=== PATIENT | female | born 1980 | race African-American/Black ===

== ENCOUNTER 2022-10-04 15:48 | Emergency (ER) | payer MEDICARE, MEDICAID ==
[2022-10-04] MEDS ORDERED: Lidocaine 1% 10 ML MDV ONE (16:29)
[2022-10-04] MEDS ORDERED: Succinylcholine 200 MG/10 ML MDV ONE ×2 (16:36→16:37)
[2022-10-04] MEDS ORDERED: Etomidate 2 MG/ML 10 ML SDV ONE (16:36)
[2022-10-04] MEDS ORDERED: Rocuronium 50 MG/5 ML Vial ONE ×2 (16:38→17:12)
[2022-10-04] MEDS ORDERED: fentaNYL 100 MCG/2 ML SDV ONE (16:38)
[2022-10-04] MEDS ORDERED: Midazolam 1 MG/ML 2 ML SDV ONE (17:08)
[2022-10-04] MEDS ORDERED: cefTRIAXone 1 GM Vial ONE (17:17)
[2022-10-04] MEDS ORDERED: Vancomycin 1 GM SDV ONE (17:17)
[2022-10-04 17:23] LABS: CHLORIDE,CL 107 mmol/L (98-107); SODIUM,NA 145 mmol/L (136-145)
[2022-10-04 17:24] LABS: ANION GAP 10.3 mmol/L (5-15); ESTIMATED GFR 94 mL/min (>=60)
[2022-10-04] MEDS ORDERED: cefTRIAXone 1 GM Vial IVPUSH ONE (18:14)
[2022-10-04] MEDS ORDERED: Succinylcholine 200 MG/10 ML MDV IV STA (18:16)
[2022-10-04] MEDS ORDERED: Midazolam 1 MG/ML 2 ML SDV IVPUSH ONE (18:18)
[2022-10-04] MEDS ORDERED: Rocuronium 50 MG/5 ML Vial IV ONE (18:19)
[2022-10-04] MEDS ORDERED: Etomidate 2 MG/ML 10 ML SDV IVPUSH ONE (18:20)
[2022-10-04] MEDS ORDERED: fentaNYL 50 MCG/ML SDV IVPUSH ONE (18:21)
[2022-10-04] MEDS ORDERED: DOPamine/Dextrose 5%-Water 400 MG/250 ML BAG IV SCH (20:00)
== END 2022-10-04 17:50 | disposition short-term general hospital (02) ==
LOC: VM.ED 15:48
DX: J69.0 Pneumonitis due to inhalation of food and vomit (principal); R06.03 Acute respiratory distress
CPT/HCPCS: 71045; 80053; 83605; 85025; 99285; J0330

== ENCOUNTER 2023-01-09 14:44 | Inpatient (IN) | payer MEDICARE, MEDICAID ==
[2023-01-09] MEDS ORDERED: Piperacillin/Tazobactam 4.5 GM in Sodium Chloride 0.9% 100 ML IV ONE (15:32)
[2023-01-09] MEDS ORDERED: Sodium Chloride 0.9% 500 ML IV ONE ×2 (16:08→20:00)
[2023-01-09] MEDS: Sodium Chloride 0.9% 1,000 ML IV SCH ×2 (16:59→22:36)
[2023-01-09] MEDS: Metoprolol Tartrate 25 MG Tab GTUBE SCH (21:00)
[2023-01-09] MEDS: Mirtazapine 15 MG Tab GTUBE SCH (21:50)
[2023-01-09] MEDS: Diazepam 5 MG Tab GTUBE SCH (21:52)
[2023-01-09] MEDS: Baclofen 10 MG Tab GTUBE SCH (21:53)
[2023-01-09] MEDS: Docusate Sodium Liquid 100 MG/10 ML UD Cup GTUBE SCH (21:53)
[2023-01-09] MEDS: Piperacillin/Tazobactam 4.5 GM in Sodium Chloride 0.9% 100 ML IV SCH (22:37)
[2023-01-10] MEDS: Sodium Chloride 0.9% 1,000 ML IV SCH ×2 (04:05→14:22)
[2023-01-10] MEDS: Piperacillin/Tazobactam 4.5 GM in Sodium Chloride 0.9% 100 ML IV SCH ×4 (05:21→22:01)
[2023-01-10] MEDS: Acetaminophen 500 MG Tab GTUBE PRN (05:59)
[2023-01-10] MEDS: Diazepam 5 MG Tab GTUBE SCH ×2 (08:58→20:16)
[2023-01-10] MEDS: Sertraline 100 MG Tab GTUBE SCH (09:02)
[2023-01-10] MEDS: LEVONORGESTREL GTUBE SCH (09:04)
[2023-01-10] MEDS: ETHINYL ESTRADIOL GTUBE SCH (09:04)
[2023-01-10] MEDS: [UNRECOGNIZED DRUG - OTHER] GTUBE SCH (09:04)
[2023-01-10] MEDS: Baclofen 10 MG Tab GTUBE SCH ×3 (09:05→20:17)
[2023-01-10] MEDS: Non-Formulary Medication 1 Each (Aluminum Chloride [Drysol] 60 ML Solution) TOP SCH ×2 (09:05→20:17)
[2023-01-10] MEDS: Magnesium Hydroxide 400 MG/5 ML Susp 30 ML Cup GTUBE SCH (09:07)
[2023-01-10] MEDS: Polyethylene Glycol 3350 Powder 17 GM Packet GTUBE SCH (09:07)
[2023-01-10] MEDS: Metoprolol Tartrate 25 MG Tab GTUBE SCH ×2 (09:09→20:15)
[2023-01-10] MEDS: Docusate Sodium Liquid 100 MG/10 ML UD Cup GTUBE SCH ×2 (09:13→20:16)
[2023-01-10 09:19] LABS: ANION GAP 10.8 mmol/L (5-15)
[2023-01-10] MEDS: Enoxaparin 30 MG/0.3 ML Syringe SUBCUT SCH (13:11)
[2023-01-10] MEDS: [UNRECOGNIZED DRUG - OTHER] GTUBE SCH (16:34)
[2023-01-10] MEDS: Mirtazapine 15 MG Tab GTUBE SCH (20:14)
[2023-01-11] MEDS: Piperacillin/Tazobactam 4.5 GM in Sodium Chloride 0.9% 100 ML IV SCH ×3 (05:31→16:36)
[2023-01-11] MEDS: LEVONORGESTREL GTUBE SCH (08:27)
[2023-01-11] MEDS: Baclofen 10 MG Tab GTUBE SCH ×3 (08:27→20:09)
[2023-01-11] MEDS: Diazepam 5 MG Tab GTUBE SCH ×2 (08:27→20:10)
[2023-01-11] MEDS: Acetaminophen 500 MG Tab GTUBE PRN (08:27)
[2023-01-11] MEDS: [UNRECOGNIZED DRUG - OTHER] GTUBE SCH (08:27)
[2023-01-11] MEDS: Sertraline 100 MG Tab GTUBE SCH (08:27)
[2023-01-11] MEDS: ETHINYL ESTRADIOL GTUBE SCH (08:27)
[2023-01-11] MEDS: Polyethylene Glycol 3350 Powder 17 GM Packet GTUBE SCH (08:28)
[2023-01-11] MEDS: Docusate Sodium Liquid 100 MG/10 ML UD Cup GTUBE SCH ×2 (08:28→20:14)
[2023-01-11] MEDS: Magnesium Hydroxide 400 MG/5 ML Susp 30 ML Cup GTUBE SCH (08:28)
[2023-01-11] MEDS: Metoprolol Tartrate 25 MG Tab GTUBE SCH ×2 (08:29→20:12)
[2023-01-11] MEDS: Non-Formulary Medication 1 Each (Aluminum Chloride [Drysol] 60 ML Solution) TOP SCH ×2 (08:36→20:13)
[2023-01-11 08:52] LABS: ANION GAP 11.3 mmol/L (5-15)
[2023-01-11] MEDS: Sodium Chloride 0.9% 1,000 ML IV SCH ×2 (10:12→11:18)
[2023-01-11] MEDS: Enoxaparin 30 MG/0.3 ML Syringe SUBCUT SCH (12:58)
[2023-01-11] MEDS: [UNRECOGNIZED DRUG - OTHER] GTUBE SCH (16:40)
[2023-01-11] MEDS: Mirtazapine 15 MG Tab GTUBE SCH (20:09)
[2023-01-12] MEDS: Piperacillin/Tazobactam 4.5 GM in Sodium Chloride 0.9% 100 ML IV SCH ×3 (00:16→10:58)
[2023-01-12] MEDS: Non-Formulary Medication 1 Each (Aluminum Chloride [Drysol] 60 ML Solution) TOP SCH ×2 (08:19→20:53)
[2023-01-12] MEDS: Metoprolol Tartrate 25 MG Tab GTUBE SCH ×2 (08:20→20:49)
[2023-01-12] MEDS: Diazepam 5 MG Tab GTUBE SCH ×2 (08:20→20:50)
[2023-01-12] MEDS: Sertraline 100 MG Tab GTUBE SCH (08:21)
[2023-01-12] MEDS: Baclofen 10 MG Tab GTUBE SCH ×3 (08:21→20:50)
[2023-01-12] MEDS: [UNRECOGNIZED DRUG - OTHER] GTUBE SCH (08:22)
[2023-01-12] MEDS: ETHINYL ESTRADIOL GTUBE SCH (08:22)
[2023-01-12] MEDS: LEVONORGESTREL GTUBE SCH (08:22)
[2023-01-12] MEDS: Magnesium Hydroxide 400 MG/5 ML Susp 30 ML Cup GTUBE SCH (10:32)
[2023-01-12] MEDS: Polyethylene Glycol 3350 Powder 17 GM Packet GTUBE SCH (10:32)
[2023-01-12] MEDS: Docusate Sodium Liquid 100 MG/10 ML UD Cup GTUBE SCH ×2 (10:32→20:51)
[2023-01-12] MEDS: Enoxaparin 30 MG/0.3 ML Syringe SUBCUT SCH (11:02)
[2023-01-12] MEDS: [UNRECOGNIZED DRUG - OTHER] GTUBE SCH (16:07)
[2023-01-12] MEDS: Amoxicillin/Clavulanate K 600-42.9 MG/5 ML Susp 125 ML Bottle GTUBE SCH (20:52)
[2023-01-12] MEDS: Mirtazapine 15 MG Tab GTUBE SCH (20:55)
[2023-01-12] MEDS: Sodium Chloride 0.9% 1,000 ML IV SCH (22:18)
[2023-01-13 07:08] LABS: ANION GAP 7.6 mmol/L (5-15)
[2023-01-13] MEDS: LEVONORGESTREL GTUBE SCH (08:33)
[2023-01-13] MEDS: ETHINYL ESTRADIOL GTUBE SCH (08:33)
[2023-01-13] MEDS: [UNRECOGNIZED DRUG - OTHER] GTUBE SCH (08:33)
[2023-01-13] MEDS: Metoprolol Tartrate 25 MG Tab GTUBE SCH ×2 (08:34→20:44)
[2023-01-13] MEDS: Diazepam 5 MG Tab GTUBE SCH ×2 (08:34→20:42)
[2023-01-13] MEDS: Sertraline 100 MG Tab GTUBE SCH (08:35)
[2023-01-13] MEDS: Amoxicillin/Clavulanate K 600-42.9 MG/5 ML Susp 125 ML Bottle GTUBE SCH ×3 (08:35→20:43)
[2023-01-13] MEDS: Baclofen 10 MG Tab GTUBE SCH ×3 (08:35→20:42)
[2023-01-13] MEDS: Non-Formulary Medication 1 Each (Aluminum Chloride [Drysol] 60 ML Solution) TOP SCH ×3 (08:36→20:44)
[2023-01-13] MEDS: Docusate Sodium Liquid 100 MG/10 ML UD Cup GTUBE SCH (08:36)
[2023-01-13] MEDS: Enoxaparin 30 MG/0.3 ML Syringe SUBCUT SCH (12:06)
[2023-01-13] MEDS ORDERED: Furosemide 20 MG/2 ML VIAL IV ONE (13:50)
[2023-01-13] MEDS: Acetaminophen 500 MG Tab GTUBE PRN (17:39)
[2023-01-13] MEDS: [UNRECOGNIZED DRUG - OTHER] GTUBE SCH (17:48)
[2023-01-13] MEDS: Mirtazapine 15 MG Tab GTUBE SCH (20:41)
[2023-01-14 07:14] LABS: ANION GAP 9.5 mmol/L (5-15)
[2023-01-14] MEDS: Non-Formulary Medication 1 Each (Aluminum Chloride [Drysol] 60 ML Solution) TOP SCH ×2 (09:00→20:55)
[2023-01-14] MEDS: [UNRECOGNIZED DRUG - OTHER] GTUBE SCH (09:37)
[2023-01-14] MEDS: ETHINYL ESTRADIOL GTUBE SCH (09:37)
[2023-01-14] MEDS: Baclofen 10 MG Tab GTUBE SCH ×3 (09:37→20:45)
[2023-01-14] MEDS: LEVONORGESTREL GTUBE SCH (09:37)
[2023-01-14] MEDS: Diazepam 5 MG Tab GTUBE SCH ×2 (09:37→20:45)
[2023-01-14] MEDS: Sertraline 100 MG Tab GTUBE SCH (09:38)
[2023-01-14] MEDS: Metoprolol Tartrate 25 MG Tab GTUBE SCH ×2 (09:44→20:45)
[2023-01-14] MEDS: Amoxicillin/Clavulanate K 600-42.9 MG/5 ML Susp 125 ML Bottle GTUBE SCH ×3 (09:45→20:50)
[2023-01-14] MEDS: Enoxaparin 30 MG/0.3 ML Syringe SUBCUT SCH (12:48)
[2023-01-14] MEDS: [UNRECOGNIZED DRUG - OTHER] GTUBE SCH (18:30)
[2023-01-14] MEDS: Mirtazapine 15 MG Tab GTUBE SCH (20:45)
[2023-01-15 07:31] LABS: ANION GAP 5.7 mmol/L (5-15)
[2023-01-15] MEDS: LEVONORGESTREL GTUBE SCH (09:07)
[2023-01-15] MEDS: [UNRECOGNIZED DRUG - OTHER] GTUBE SCH (09:07)
[2023-01-15] MEDS: Amoxicillin/Clavulanate K 600-42.9 MG/5 ML Susp 125 ML Bottle GTUBE SCH ×2 (09:07→12:57)
[2023-01-15] MEDS: ETHINYL ESTRADIOL GTUBE SCH (09:07)
[2023-01-15] MEDS: Sertraline 100 MG Tab GTUBE SCH (09:08)
[2023-01-15] MEDS: Diazepam 5 MG Tab GTUBE SCH (09:08)
[2023-01-15] MEDS: Metoprolol Tartrate 25 MG Tab GTUBE SCH (09:09)
[2023-01-15] MEDS: Baclofen 10 MG Tab GTUBE SCH ×2 (09:10→12:57)
[2023-01-15] MEDS: Non-Formulary Medication 1 Each (Aluminum Chloride [Drysol] 60 ML Solution) TOP SCH (09:10)
[2023-01-15] MEDS: Enoxaparin 30 MG/0.3 ML Syringe SUBCUT SCH (12:55)
== END 2023-01-15 14:36 | disposition swing bed (61) | DRG 871 ==
LOC: VM.MS 15:14
PROVIDERS: ADMIT Family Medicine; ATTEND Family Medicine
DX: A41.9 Sepsis, unspecified organism (principal); J69.0 Pneumonitis due to inhalation of food and vomit; J96.01 Acute respiratory failure with hypoxia; N17.9 Acute kidney failure, unspecified; K59.00 Constipation, unspecified; E86.0 Dehydration; K21.9 Gastro-esophageal reflux disease without esophagitis; N92.0 Excessive and frequent menstruation with regular cycle; F32.A Depression, unspecified; G80.9 Cerebral palsy, unspecified; Z93.1 Gastrostomy status; Z79.82 Long term (current) use of aspirin; Z79.899 Other long term (current) drug therapy
CPT/HCPCS: 36415; 71045; 71046; 80048; 80053; 83605; 84145; 85025; 86140; 87040; 87324; 87493; 94760; 95851-GO; 97110-GP; 97162-GP; 97165-GO; 97530-GP; A9270-GY; J1650; J1940; J2543; J7030; J7050

== ENCOUNTER 2023-01-15 11:00 | Inpatient (IN) | payer MEDICARE, MEDICAID ==
[2023-01-15] MEDS ORDERED: Acetaminophen 500 MG Tab GTUBE PRN (14:59)
[2023-01-15] MEDS: Baclofen 10 MG Tab GTUBE SCH ×2 (15:00→20:41)
[2023-01-15] MEDS: Amoxicillin/Clavulanate K 600-42.9 MG/5 ML Susp 125 ML Bottle GTUBE SCH ×2 (15:30→20:52)
[2023-01-15] MEDS: [UNRECOGNIZED DRUG - OTHER] GTUBE SCH (19:02)
[2023-01-15] MEDS: Metoprolol Tartrate 25 MG Tab GTUBE SCH (20:40)
[2023-01-15] MEDS: Diazepam 5 MG Tab GTUBE SCH (20:40)
[2023-01-15] MEDS: ALUMINUM CHLORIDE TOP SCH (20:43)
[2023-01-15] MEDS ORDERED: Mirtazapine 15 MG Tab GTUBE SCH (21:00)
[2023-01-16] MEDS ORDERED: Sertraline 100 MG Tab GTUBE SCH (09:00)
[2023-01-16] MEDS: Metoprolol Tartrate 25 MG Tab GTUBE SCH (10:04)
[2023-01-16] MEDS: Diazepam 5 MG Tab GTUBE SCH (10:05)
[2023-01-16] MEDS: Baclofen 10 MG Tab GTUBE SCH ×2 (10:06→14:06)
[2023-01-16] MEDS: LEVONORGESTREL GTUBE SCH (10:07)
[2023-01-16] MEDS: ETHIN ESTRADIOL GTUBE SCH (10:07)
[2023-01-16] MEDS: Amoxicillin/Clavulanate K 600-42.9 MG/5 ML Susp 125 ML Bottle GTUBE SCH ×3 (10:34→21:23)
[2023-01-16] MEDS: ALUMINUM CHLORIDE TOP SCH ×2 (15:50→21:25)
[2023-01-16] MEDS: [UNRECOGNIZED DRUG - OTHER] GTUBE SCH (17:16)
[2023-01-16] MEDS: METOPROLOL TARTRATE 25 MG GTUBE SCH (21:16)
[2023-01-16] MEDS: BACLOFEN 10 MG GTUBE SCH (21:17)
[2023-01-16] MEDS: MIRTAZAPINE 7.5 MG GTUBE SCH (21:17)
[2023-01-16] MEDS: DIAZEPAM 5 MG GTUBE SCH (21:19)
[2023-01-17] MEDS: METOPROLOL TARTRATE 25 MG GTUBE SCH ×2 (09:51→21:18)
[2023-01-17] MEDS: Sertraline 100 MG Tab (OWN SUPPLY) GTUBE SCH (09:52)
[2023-01-17] MEDS: BACLOFEN 10 MG GTUBE SCH ×3 (09:53→21:17)
[2023-01-17] MEDS: Amoxicillin/Clavulanate K 600-42.9 MG/5 ML Susp 125 ML Bottle GTUBE SCH ×3 (09:55→21:18)
[2023-01-17] MEDS: DIAZEPAM 5 MG GTUBE SCH ×2 (09:57→21:19)
[2023-01-17] MEDS: LEVONORGESTREL GTUBE SCH (09:57)
[2023-01-17] MEDS: ETHIN ESTRADIOL GTUBE SCH (09:57)
[2023-01-17] MEDS: [UNRECOGNIZED DRUG - OTHER] GTUBE SCH (18:07)
[2023-01-17] MEDS: ALUMINUM CHLORIDE TOP SCH ×2 (18:08→21:18)
[2023-01-17] MEDS: MIRTAZAPINE 7.5 MG GTUBE SCH (21:18)
[2023-01-18] MEDS: ETHIN ESTRADIOL GTUBE SCH (10:15)
[2023-01-18] MEDS: LEVONORGESTREL GTUBE SCH (10:15)
[2023-01-18] MEDS: DIAZEPAM 5 MG GTUBE SCH ×2 (10:16→21:01)
[2023-01-18] MEDS: AMOXICILLIN GTUBE SCH ×3 (10:20→20:59)
[2023-01-18] MEDS: [UNRECOGNIZED DRUG - OTHER] GTUBE SCH ×2 (10:20→16:56)
[2023-01-18] MEDS: CLAVULANATE K GTUBE SCH ×3 (10:20→20:59)
[2023-01-18] MEDS: ALUMINUM CHLORIDE TOP SCH ×2 (10:21→21:00)
[2023-01-18] MEDS: Sertraline 100 MG Tab (OWN SUPPLY) GTUBE SCH (10:24)
[2023-01-18] MEDS: METOPROLOL TARTRATE 25 MG GTUBE SCH ×2 (10:25→20:56)
[2023-01-18] MEDS: BACLOFEN 10 MG GTUBE SCH ×3 (10:26→20:57)
[2023-01-18] MEDS: Amoxicillin/Clavulanate K 600-42.9 MG/5 ML Susp 125 ML Bottle GTUBE SCH (10:28)
[2023-01-18] MEDS: MIRTAZAPINE 7.5 MG GTUBE SCH (20:56)
[2023-01-19] MEDS: CLAVULANATE K GTUBE SCH ×3 (08:37→21:52)
[2023-01-19] MEDS: AMOXICILLIN GTUBE SCH ×3 (08:37→21:52)
[2023-01-19] MEDS: ALUMINUM CHLORIDE TOP SCH ×2 (08:37→21:52)
[2023-01-19] MEDS: ETHIN ESTRADIOL GTUBE SCH (08:38)
[2023-01-19] MEDS: LEVONORGESTREL GTUBE SCH (08:38)
[2023-01-19] MEDS: BACLOFEN 10 MG GTUBE SCH ×3 (08:39→21:56)
[2023-01-19] MEDS: Sertraline 100 MG Tab (OWN SUPPLY) GTUBE SCH (08:40)
[2023-01-19] MEDS: DIAZEPAM 5 MG GTUBE SCH ×2 (08:41→21:53)
[2023-01-19] MEDS: METOPROLOL TARTRATE 25 MG GTUBE SCH ×2 (08:44→21:57)
[2023-01-19] MEDS: [UNRECOGNIZED DRUG - OTHER] GTUBE SCH (17:04)
[2023-01-19] MEDS: MIRTAZAPINE 7.5 MG GTUBE SCH (21:55)
[2023-01-20] MEDS: ETHIN ESTRADIOL GTUBE SCH (08:00)
[2023-01-20] MEDS: LEVONORGESTREL GTUBE SCH (08:00)
[2023-01-20] MEDS: Sertraline 100 MG Tab (OWN SUPPLY) GTUBE SCH (08:01)
[2023-01-20] MEDS: BACLOFEN 10 MG GTUBE SCH ×3 (08:01→21:08)
[2023-01-20] MEDS: METOPROLOL TARTRATE 25 MG GTUBE SCH ×2 (08:02→21:12)
[2023-01-20] MEDS: ALUMINUM CHLORIDE TOP SCH ×2 (08:03→21:11)
[2023-01-20] MEDS: DIAZEPAM 5 MG GTUBE SCH ×2 (08:03→21:09)
[2023-01-20] MEDS: AMOXICILLIN GTUBE SCH ×3 (08:17→21:11)
[2023-01-20] MEDS: CLAVULANATE K GTUBE SCH ×3 (08:17→21:11)
[2023-01-20] MEDS: [UNRECOGNIZED DRUG - OTHER] GTUBE SCH (16:30)
[2023-01-20] MEDS: MIRTAZAPINE 7.5 MG GTUBE SCH (21:09)
[2023-01-21] MEDS: ETHIN ESTRADIOL GTUBE SCH (07:59)
[2023-01-21] MEDS: LEVONORGESTREL GTUBE SCH (07:59)
[2023-01-21] MEDS: DIAZEPAM 5 MG GTUBE SCH ×2 (07:59→23:09)
[2023-01-21] MEDS: ALUMINUM CHLORIDE TOP SCH ×2 (08:00→23:07)
[2023-01-21] MEDS: CLAVULANATE K GTUBE SCH (08:00)
[2023-01-21] MEDS: AMOXICILLIN GTUBE SCH (08:00)
[2023-01-21] MEDS: Sertraline 100 MG Tab (OWN SUPPLY) GTUBE SCH (08:00)
[2023-01-21] MEDS: BACLOFEN 10 MG GTUBE SCH ×3 (08:00→23:08)
[2023-01-21] MEDS: METOPROLOL TARTRATE 25 MG GTUBE SCH ×2 (08:02→23:07)
[2023-01-21] MEDS: [UNRECOGNIZED DRUG - OTHER] GTUBE SCH (17:02)
[2023-01-21] MEDS: MIRTAZAPINE 7.5 MG GTUBE SCH (23:08)
[2023-01-22 09:50] LABS: CHLORIDE,CL 98 mmol/L (98-107); SODIUM,NA 139 mmol/L (136-145)
[2023-01-22 09:51] LABS: ANION GAP 5.5 mmol/L (5-15); ESTIMATED GFR 119 mL/min (>=60)
[2023-01-22] MEDS: METOPROLOL TARTRATE 25 MG GTUBE SCH ×2 (10:23→21:12)
[2023-01-22] MEDS: ETHIN ESTRADIOL GTUBE SCH (10:23)
[2023-01-22] MEDS: BACLOFEN 10 MG GTUBE SCH ×3 (10:23→22:03)
[2023-01-22] MEDS: LEVONORGESTREL GTUBE SCH (10:23)
[2023-01-22] MEDS: Sertraline 100 MG Tab (OWN SUPPLY) GTUBE SCH (10:24)
[2023-01-22] MEDS: ALUMINUM CHLORIDE TOP SCH ×2 (10:25→21:06)
[2023-01-22] MEDS: DIAZEPAM 5 MG GTUBE SCH ×2 (10:25→21:31)
[2023-01-22] MEDS: [UNRECOGNIZED DRUG - OTHER] GTUBE SCH (17:46)
[2023-01-22] MEDS: MIRTAZAPINE 7.5 MG GTUBE SCH (21:12)
[2023-01-22] MEDS: Baclofen 10 MG Tab PO SCH (22:04)
[2023-01-23] MEDS: BACLOFEN 10 MG GTUBE SCH ×3 (01:55→14:11)
[2023-01-23] MEDS: LEVONORGESTREL GTUBE SCH (11:27)
[2023-01-23] MEDS: ETHIN ESTRADIOL GTUBE SCH (11:27)
[2023-01-23] MEDS: ALUMINUM CHLORIDE TOP SCH (11:27)
[2023-01-23] MEDS: Baclofen 10 MG Tab PO SCH ×2 (11:29→14:04)
[2023-01-23] MEDS: Sertraline 100 MG Tab (OWN SUPPLY) GTUBE SCH (11:29)
[2023-01-23] MEDS: DIAZEPAM 5 MG GTUBE SCH (11:30)
[2023-01-23] MEDS: METOPROLOL TARTRATE 25 MG GTUBE SCH (11:31)
[2023-01-23] MEDS: [UNRECOGNIZED DRUG - OTHER] GTUBE SCH (17:33)
== END 2023-01-23 14:30 | DRG 871 ==
LOC: VM.MS 14:38
PROVIDERS: ADMIT Family Medicine; ATTEND Family Medicine
DX: A41.9 Sepsis, unspecified organism (principal); J69.0 Pneumonitis due to inhalation of food and vomit; J96.01 Acute respiratory failure with hypoxia; N17.9 Acute kidney failure, unspecified; E86.0 Dehydration; K21.9 Gastro-esophageal reflux disease without esophagitis; N92.0 Excessive and frequent menstruation with regular cycle; F32.A Depression, unspecified; F79 Unspecified intellectual disabilities; K59.09 Other constipation; Z79.899 Other long term (current) drug therapy; Z88.6 Allergy status to analgesic agent; Z93.1 Gastrostomy status; Z88.8 Allergy status to other drugs, medicaments and biological substances
CPT/HCPCS: 36415; 71045; 80053; 85025; 86140; 94760; 95851-GO; 97110-GP; 97168-GO; 97530-GP; A9270-GY

== ENCOUNTER 2023-03-08 11:27 | Emergency (ER) | payer MEDICARE, MEDICAID | END 2023-03-08 12:00 | disposition short-term general hospital (02) | LOC: VM.ED 11:27 | DX: K94.29 Other complications of gastrostomy (principal); Z88.8 Allergy status to other drugs, medicaments and biological substances | CPT/HCPCS: 99284 ==

== ENCOUNTER 2023-03-09 03:18 | Inpatient (IN) | payer MEDICARE, MEDICAID ==
[2023-03-09] MEDS ORDERED: Sodium Chloride 0.9% 10 ML Syringe FLUSH PRN (03:28)
[2023-03-09] MEDS ORDERED: Morphine 4 MG/ML Syringe SUBCUT ONE (05:11)
[2023-03-09] MEDS ORDERED: LORazepam 2 MG/ML SDV SUBCUT PRN (06:00)
[2023-03-09] MEDS ORDERED: Atropine 1% Ophth Soln 5 ML Bottle SL PRN (06:00)
[2023-03-09] MEDS ORDERED: Ondansetron 4 MG/2 ML SDV SUBCUT PRN (06:00)
[2023-03-09] MEDS ORDERED: Morphine 2 MG/ML SYRINGE SUBCUT PRN (06:00)
== END 2023-03-09 09:38 | disposition expired | DRG 951 ==
LOC: VM.ED 03:18 → VM.MS 05:00
PROVIDERS: ADMIT Nurse Practitioner Family; ATTEND Family Medicine
DX: Z51.5 Encounter for palliative care (principal); J96.01 Acute respiratory failure with hypoxia; D62 Acute posthemorrhagic anemia; G80.1 Spastic diplegic cerebral palsy; I95.9 Hypotension, unspecified; R62.50 Unspecified lack of expected normal physiological development in childhood; K21.9 Gastro-esophageal reflux disease without esophagitis; K59.09 Other constipation; Z66 Do not resuscitate; F32.A Depression, unspecified; E86.0 Dehydration; Z79.899 Other long term (current) drug therapy; Z88.6 Allergy status to analgesic agent; Z74.01 Bed confinement status
CPT/HCPCS: 36416; 71045; 85025; 94760; 99285; J2270